=== PATIENT | female | born 1970 | race Hispanic/Latino ===

== ENCOUNTER → 2022-10-23 | Outpatient (CLI) | payer OTHER | LOC: M WHC 11:02 | PROVIDERS: ATTEND Family Medicine | DX: Z12.31 Encounter for screening mammogram for malignant neoplasm of breast (principal) ==

== ENCOUNTER → 2024-08-11 | Outpatient (CLI) | payer OTHER | LOC: M WHC 12:53 | PROVIDERS: ATTEND Nurse Practitioner Primary Care | DX: Z12.31 Encounter for screening mammogram for malignant neoplasm of breast (principal) ==

== ENCOUNTER 2025-02-18 07:42 | Day surgery (SDC) | payer OTHER ==
[~2025-02-18] VITALS: Ht 154.9 cm; Wt 71.7 kg
[~2025-02-18 07:42] MED LIST: CITA10TA7 PO; CODCAP25 PO; GLUT500C4 PO; K2 P1TAB PO; LIOT5TAB6 PO; METF-838 PO; OMEG12003 PO; SITA50TAB PO; SYNT125T PO; THERTAB52 PO
[2025-02-18] MEDS ORDERED: propofoL 200 MG/20 ML VIAL As Ordered ONE (09:19)
[2025-02-18 09:34] VITALS: TEMP 97.1
[2025-02-18 10:01] VITALS: BP 121/65; O2SAT 98
== END 2025-02-18 10:05 | disposition home or self-care (01) ==
LOC: M OPP 07:42
PROVIDERS: ATTEND Surgery
DX: Z12.11 Encounter for screening for malignant neoplasm of colon (principal); Z12.12 Encounter for screening for malignant neoplasm of rectum; D12.0 Benign neoplasm of cecum; D12.4 Benign neoplasm of descending colon; K64.0 First degree hemorrhoids; K57.30 Diverticulosis of large intestine without perforation or abscess without bleeding; E11.9 Type 2 diabetes mellitus without complications; E06.3 Autoimmune thyroiditis; Z79.890 Hormone replacement therapy; Z79.899 Other long term (current) drug therapy; Z79.84 Long term (current) use of oral hypoglycemic drugs; Z88.5 Allergy status to narcotic agent